=== PATIENT | male | born 1960 | race Caucasian/White ===

== ENCOUNTER 2018-04-11 18:35 | Emergency (ER) | payer BC ==
[2018-04-11] MEDS ORDERED: MORPHINE 4 MG/ML SYR ONE (19:33)
[2018-04-11] MEDS ORDERED: ONDANSETRON 4 MG/2 ML VIAL ONE (19:33)
[2018-04-11] MEDS ORDERED: NA CHLORIDE 0.9% 1,000 ML ONE (19:35)
[2018-04-11 20:00] LABS: Absolute Lymphocytes (CBC) 1.3 K/uL (0.7-4.9); Absolute Monocytes 0.6 K/uL (0.1-1.3); Absolute Neutrophil 10.3 K/uL (1.8-8.0); Basophils % 0.3 % (0-1.3); Hematocrit 49.2 % (39.6-49.0); Lymphocytes % 10.9 % (15.3-44.8); MCH 33.2 pg (27.0-35.0); MCV 96.9 fL (80-100); MPV 7.7 fL (7.6-11.3); Monocytes % 4.6 % (3.3-12.3); RBC Red Blood Cell Count 5.07 M/uL (4.33-5.43)
[2018-04-11 20:17] LABS: ALT/SGPT 31 U/L (12-78); AST/SGOT 18 U/L (15-37); Albumin 4.3 g/dL (3.4-5.0); Alkaline Phosphatase 93 U/L (45-117); Amylase Level 39 U/L (25-115); BUN Blood Urea Nitrogen 9 mg/dL (7-18); Bicarbonate 26 mmol/L (21-32); Bilirubin Direct 0.2 mg/dL (0-0.2); Bilirubin Total 0.7 mg/dL (0.2-1.0); Glucose Level 129 mg/dL (74-106); Lipase 88 U/L (73-393); Potassium 4.2 mmol/L (3.5-5.1); Protein, Total 8.1 g/dL (6.4-8.2); Sodium Level 136 mmol/L (136-145)
--- NOTE | 2018-04-11 21:03 | RAD REPORT ---
EXAM DESCRIPTION: US - Abdomen Exam Limited - 04/11/2018 8:58 pm CLINICAL HISTORY: ABD PAIN COMPARISON: No comparisons FINDINGS: The gallbladder demonstrates no gallstones. No pericholecystic fluid or gallbladder wall t hickening. The common bile duct is normal measuring 3 mm. The liver demonstrates no findings of intrahepatic biliary dilatation. IMPRESSION: Unremarkable examination.
[2018-04-11 21:18] LABS: Urine Blood TRACE (NEG); Urine Glucose NEGATIVE (NEG); Urine Protein 1+ (NEG); Urine Specific Gravity >1.030 (1.005-1.030); Urine pH 6.5 (5.0-7.0)
[2018-04-11 21:20] LABS: Urine Bacteria <20 /HPF (NONE SEEN); Urine Culture Reflex Order NOT NEEDED; Urine Mucus SLIGHT /HPF (NONE SEEN); Urine RBC <5 /HPF (NONE SEEN)
--- NOTE | 2018-04-11 23:15 | ER ---
Nurse's Notes [facility] Name: José Miguel Borrego Age: 57 yrs Sex: Male : 1960 Arrival Date: 04/11/2018 Time: 18:38 Bed 24 Private MD: None, None Diagnosis: Gastritis, unspecified, without bleeding;Vomiting, unspecified Presentation: 04/11 18:47 Presenting complaint: Patient states: chills, nausea vomiting, epigastric pain, ch lightheaded. started two -3 days ago. Transition of care: patient was not received from another setting of care. Onset of symptoms was April 08, 2018. Risk Assessment: Do you want to hurt yourself or someone else? Patient reports no desire to harm self or others. Initial Sepsis Screen: Does the patient meet any 2 criteria? No. Patient's initial sepsis screen is negative. Does the patient have a suspected source of infection? No. Patient's initial sepsis screen is negative. Care prior to arrival: None. 18:47 Method Of Arrival: Ambulatory 18:47 Acuity: RICKY 3 ch Triage Assessment: 18:49 General: Appears in no apparent distress. comfortable. ch Historical: - Allergies: 18:49 No Known Allergies; ch - Home Meds: 18:49 None [Active]; ch - PMHx: 18:49 Hypertension; ch - PSHx: 18:49 Appendectomy; ch - Immunization history:: Adult Immunizations up to date, Last tetanus immunization: not indicated for visit today. Flu vaccine is not up to date. - Social history:: Smoking status: Patient uses tobacco products, smokes one pack cigarettes per day. Patient uses alcohol, on a daily basis. Patient/guardian denies using street drugs. - Ebola Screening: : Patient negative for fever greater than or equal to 101.5 degrees Fahrenheit, and additional compatible Ebola Virus Disease symptoms Patient denies exposure to infectious person Patient denies travel to an Ebola-affected area in the 21 days before illness onset No symptoms or risks identified at this time. Screenin:21 Abuse screen: Denies threats or abuse. Denies injuries from another. Nutritional mg2 screening: No deficits noted. Tuberculosis screening: No symptoms or risk factors identified. Fall Risk IV access (20 points). Assessment: 19:19 General: Appears in no apparent distress. uncomfortable, Behavior is calm, cooperative. mg2 Pain: Complains of pain in abdomen Pain does not radiate. Pain currently is 9 out of 10 on a pain scale. Quality of pain is described as aching, Pain began gradually, Is intermittent. Neuro: Level of Consciousness is awake, alert, obeys commands, Oriented to person, place, time, situation. Cardiovascular: Capillary refill < 3 seconds Patient's skin is warm and dry. Respiratory: Airway is patent Respiratory effort is even, unlabored, Respiratory pattern is regular, symmetrical. GI: Abdomen is flat, Reports lower abdominal pain, upper abdominal pain, nausea, vomiting. : No signs and/or symptoms were reported regarding the genitourinary system. EENT: No signs and/or symptoms were reported regarding the EENT system. Derm: Skin is intact, Skin is pink, warm \T\ dry. normal. Musculoskeletal: Circulation, motion, and sensation intact. 19:50 Reassessment: Patient appears in no apparent distress at this time. Patient and/or mg2 family updated on plan of care and expected duration. Pain level reassessed. Patient is alert, oriented x 3, equal unlabored respirations, skin warm/dry/pink. 20:51 Reassessment: Patient appears in no apparent distress at this time. Patient and/or mg2 family updated on plan of care and expected duration. Pain level reassessed. Patient is alert, oriented x 3, equal unlabored respirations, skin warm/dry/pink. patient sent for ultrasound abdomen. 22:11 Reassessment: Patient appears in no apparent distress at this time. Patient and/or mg2 family updated on plan of care and expected duration. Pain level reassessed. Patient is alert, oriented x 3, equal unlabored respirations, skin warm/dry/pink. 23:00 Reassessment: Patient appears in no apparent distress at this time. Patient and/or mg2 family updated on plan of care and expected duration. Pain level reassessed. Patient is alert, oriented x 3, equal unlabored respirations, skin warm/dry/pink. 23:46 Reassessment: patient doesnt want to wait for the cardiac enzyme result. AMA form mg2 signed by the patient himself. Vital Signs: 18:49 BP 192 / 112; Pulse 70; Resp 16; Temp 98.3; Pulse Ox 99% on R/A; Weight 99.79 kg; ch Height 5 ft. 11 in. (180.34 cm); Pain 10/10; 19:49 BP 184 / 101; Pulse 89; Resp 18; Pulse Ox 96% on R/A; Pain 8/10; mg2 20:36 BP 124 / 72; Pulse 73; Resp 18; Pulse Ox 96% on R/A; Pain 0/10; mg2 22:11 BP 113 / 98; Pulse 77; Resp 18; Pulse Ox 95% on R/A; Pain 0/10; mg2 22:59 Pulse 70; Resp 18; Pulse Ox 100% on R/A; Pain 0/10; mg2 23:49 BP 132 / 78; Pulse 78; Resp 17; Pulse Ox 100% on R/A; Pain 0/10; mg2 18:49 Body Mass Index 30.68 (99.79 kg, 180.34 cm) ED Course: 18:38 Patient arrived in ED. sb2 18:39 None, None is Private Physician. sb2 18:48 Triage completed. ch 18:49 Arm band placed on left wrist. Patient placed in an exam room, on a stretcher. ch 19:11 Maxwell Lindquist, RN is Primary Nurse. mg2 19:19 Shai Cortez MD is Attending Physician. tw4 19:19 No provider procedures requiring assistance completed. Inserted saline lock: 20 gauge mg2 in right antecubital area, using aseptic technique. Blood collected. 19:21 Patient has correct armband on for positive identification. mg2 20:57 US Abdomen Limited In Process Unspecified. EDMS 22:11 EKG done, by ED staff, reviewed by Shai Cortez MD. mg2 23:12 Fredy Rutledge MD is Referral Physician. tw4 23:36 Fredy Rutledge MD is Referral Physician. tw4 23:49 IV discontinued, intact, bleeding controlled, No redness/swelling at site. Pressure mg2 dressing applied. Administered Medications: 19:47 Drug: NS 0.9% 1000 ml Route: IV; Rate: 1 bolus; Site: right antecubital; mg2 20:36 Follow up: Response: No adverse reaction; IV Status: Completed infusion mg2 19:47 Drug: morphine 4 mg Route: IVP; Site: right antecubital; mg2 20:35 Follow up: Response: No adverse reaction; Marked relief of symptoms mg2 19:47 Drug: Zofran 4 mg Route: IVP; Site: right antecubital; mg2 20:35 Follow up: Response: No adverse reaction; Marked relief of symptoms mg2 23:15 Drug: ProTONIX 40 mg Route: IVP; Site: right antecubital; mg2 Outcome: 23:15 Discharge ordered by MD. hollins 23:49 AMA AMA form signed mg2 23:49 Condition: stable 23:49 Discharge instructions given to patient, family, Instructed on discharge instructions, follow up and referral plans. medication usage, Demonstrated understanding of instructions, follow-up care, medications, Prescriptions given X 2. 23:50 Patient left the ED. mg2 Signatures: Dispatcher [employer] EDMS Tracy Mathews, RN RN Shai Cortez MD MD tw4 Angelique Rodríguez 2 Maxwell Lindquist, RN RN mg2
--- NOTE | 2018-04-11 23:15 | EDPHYS ---
Physician Documentation [facility] Name: José Miguel Borrego Age: 57 yrs Sex: Male : 1960 Arrival Date: 04/11/2018 Time: 18:38 Bed 24 Private MD: None, None ED Physician Shai Cortez HPI: 04/11 20:33 This 57 yrs old Male presents to ER via Ambulatory with complaints of Abd tw4 Pain > 50 y/o, Nausea/Vomiting, Dizziness. 20:33 The patient presents to the emergency department with nausea, vomiting. Possible tw4 causes: unknown. The symptoms are aggravated by nothing. The symptoms are alleviated by nothing. Associated signs and symptoms: Pertinent positives: abdominal pain, nausea, vomiting. Severity of symptoms: 3 day(s) ago, At their worst the symptoms were moderate in the emergency department the symptoms are unchanged. The patient has not experienced similar symptoms in the past. The patient has not recently seen a physician. Historical: - Allergies: 18:49 No Known Allergies; ch - Home Meds: 18:49 None [Active]; ch - PMHx: 18:49 Hypertension; ch - PSHx: 18:49 Appendectomy; ch - Immunization history:: Adult Immunizations up to date, Last tetanus immunization: not indicated for visit today. Flu vaccine is not up to date. - Social history:: Smoking status: Patient uses tobacco products, smokes one pack cigarettes per day. Patient uses alcohol, on a daily basis. Patient/guardian denies using street drugs. - Ebola Screening: : Patient negative for fever greater than or equal to 101.5 degrees Fahrenheit, and additional compatible Ebola Virus Disease symptoms Patient denies exposure to infectious person Patient denies travel to an Ebola-affected area in the 21 days before illness onset No symptoms or risks identified at this time. ROS: 20:33 Constitutional: Negative for fever, chills, and weight loss, Cardiovascular: Negative tw4 for chest pain, palpitations, and edema, Respiratory: Negative for shortness of breath, cough, wheezing, and pleuritic chest pain. 20:33 Abdomen/GI: Positive for abdominal pain, nausea and vomiting, nausea, vomiting, and diarrhea, nausea, vomiting, abdominal cramps, Negative for dysphagia, hematemesis, black/tarry stool, rectal pain, rectal bleeding, flatulence. Exam: 20:33 Head/Face: Normocephalic, atraumatic. Chest/axilla: Normal chest wall appearance and tw4 motion. Nontender with no deformity. No lesions are appreciated. Cardiovascular: Regular rate and rhythm with a normal S1 and S2. No gallops, murmurs, or rubs. Normal PMI, no JVD. No pulse deficits. Respiratory: Lungs have equal breath sounds bilaterally, clear to auscultation and percussion. No rales, rhonchi or wheezes noted. No increased work of breathing, no retractions or nasal flaring. 20:33 MS/ Extremity: Pulses equal, no cyanosis. Neurovascular intact. Full, normal range of motion. Neuro: Awake and alert, GCS 15, oriented to person, place, time, and situation. Cranial nerves II-XII grossly intact. Motor strength 5/5 in all extremities. Sensory grossly intact. Cerebellar exam normal. Normal gait. 20:33 Constitutional: The patient appears obviously ill, in obvious pain. 20:33 Abdomen/GI: Inspection: abdomen appears normal, Bowel sounds: normal, Palpation: moderate abdominal tenderness, in the right upper quadrant. Vital Signs: 18:49 BP 192 / 112; Pulse 70; Resp 16; Temp 98.3; Pulse Ox 99% on R/A; Weight 99.79 kg; ch Height 5 ft. 11 in. (180.34 cm); Pain 10/10; 19:49 BP 184 / 101; Pulse 89; Resp 18; Pulse Ox 96% on R/A; Pain 8/10; mg2 20:36 BP 124 / 72; Pulse 73; Resp 18; Pulse Ox 96% on R/A; Pain 0/10; mg2 22:11 BP 113 / 98; Pulse 77; Resp 18; Pulse Ox 95% on R/A; Pain 0/10; mg2 22:59 Pulse 70; Resp 18; Pulse Ox 100% on R/A; Pain 0/10; mg2 23:49 BP 132 / 78; Pulse 78; Resp 17; Pulse Ox 100% on R/A; Pain 0/10; mg2 18:49 Body Mass Index 30.68 (99.79 kg, 180.34 cm) MDM: 19:19 Patient medically screened. tw4 20:33 Differential diagnosis: gastritis, cholecystitis, pancreatitis, appendicitis. Data tw4 reviewed: vital signs, nurses notes. 04/11 19:27 Order name: Amylase, Serum; Complete Time: 20:48 [facility] 04/11 20:49 Interpretation: Within normal limits: ALANNAH 39. [facility] 04/11 19:27 Order name: Basic Metabolic Panel; Complete Time: 20:48 [facility] 04/11 20:48 Interpretation: Normal except: GLUC 129. [facility] 04/11 19:27 Order name: CBC with Diff; Complete Time: 20:48 [facility] 04/11 20:49 Interpretation: Normal except: WBC 12.2; HCT 49.2; ZACK% 84.2; LYM% 10.9; NEUT A 10.3. [facility] 04/11 19:27 Order name: Creatinine for Radiology; Complete Time: 20:48 [facility] 04/11 20:49 Interpretation: Within normal limits: CRE 0.90. [facility] 04/11 19:27 Order name: Hepatic Function; Complete Time: 20:48 [facility] 04/11 20:49 Interpretation: Normal except: GLOB 3.8. [facility] 04/11 19:27 Order name: Lipase; Complete Time: 20:48 [facility] 04/11 20:49 Interpretation: Within normal limits: LIP 88. [facility] 04/11 19:27 Order name: Urine Microscopic Only; Complete Time: 21:47 [facility] 04/11 21:48 Interpretation: Within normal limits. [facility] 04/11 20:31 Order name: US Abdomen Limited; Complete Time: 21:47 [facility] 04/11 20:47 Order name: Urine Dipstick--Ancillary (enter results); Complete Time: 21:47 [place] 04/11 21:47 Interpretation: Normal except: USPGR >1.030; UPROT 1+; UBLD TRACE; UKET 2+. [facility] 04/11 21:48 Order name: Troponin (emerg Dept Use Only) [facility] 04/11 21:48 Order name: Ckmb [facility] 04/11 21:48 Order name: CK [facility] 04/11 19:27 Order name: IV Saline Lock; Complete Time: 19:47 [facility] 04/11 19:27 Order name: Labs collected and sent; Complete Time: 19:48 [facility] 04/11 19:27 Order name: Urine Dipstick-Ancillary (obtain specimen); Complete Time: 22:59 [facility] 04/11 22:13 Order name: EKG - Nurse/Tech; Complete Time: 22:13 mg2 Administered Medications: 19:47 Drug: NS 0.9% 1000 ml Route: IV; Rate: 1 bolus; Site: right antecubital; mg2 20:36 Follow up: Response: No adverse reaction; IV Status: Completed infusion mg2 19:47 Drug: morphine 4 mg Route: IVP; Site: right antecubital; mg2 20:35 Follow up: Response: No adverse reaction; Marked relief of symptoms mg2 19:47 Drug: Zofran 4 mg Route: IVP; Site: right antecubital; mg2 20:35 Follow up: Response: No adverse reaction; Marked relief of symptoms mg2 23:15 Drug: ProTONIX 40 mg Route: IVP; Site: right antecubital; mg2 Disposition: 04/11/18 23:36 Patient has left against medical advice. Impression: Gastritis, unspecified, without bleeding, Vomiting, unspecified. - Patients states they are going to Home. - Condition is Stable. - Discharge Instructions: Gastritis, Adult, Nausea and Vomiting, Adult. - Prescriptions for Protonix 40 mg Oral Tablet - take 1 tablet by ORAL route once daily; 30 tablet. Zofran 4 mg Oral Tablet - take 1 tablet by ORAL route every 12 hours As needed; 6 tablet. Medication Reconciliation Form, Thank You Letter form. Follow up: Private Physician; When: Upon discharge from the Emergency Department; Reason: Further diagnostic work-up, Recheck today's complaints, Continuance of care. Follow up: Fredy Rutledge MD; When: Upon discharge from the Emergency Department; Reason: Recheck today's complaints, Continuance of care. - Problem is new. - Symptoms have improved. Signatures: Dispatcher [employer] EDMS Tracy Mathews, RN RN Shai Cortez MD MD tw4 Maxwell Lindquist RN RN mg2 Corrections: (The following items were deleted from the chart) 23:36 23:15 04/11/2018 23:15 Discharged to Home. Impression: Gastritis, unspecified, without tw4 bleeding; Vomiting, unspecified. Condition is Stable. Forms are Medication Reconciliation Form, Thank You Letter, Antibiotic Education, Prescription Opioid Use. Follow up: Private Physician; When: Upon discharge from the Emergency Department; Reason: Further diagnostic work-up, Recheck today's complaints, Continuance of care. Follow up: Fredy Rutledge; When: Upon discharge from the Emergency Department; Reason: Further diagnostic work-up, Recheck today's complaints, Continuance of care. Problem is new. Symptoms have improved. tw4 23:50 23:36 04/11/2018 23:36 Patients has left against medical advice. Impression: Gastritis, mg2 unspecified, without bleeding; Vomiting, unspecified. Patient states they are going to Home. Condition is Stable. Prescriptions for Protonix 40 mg Oral Tablet - take 1 tablet by ORAL route once daily; 30 tablet, Zofran 4 mg Oral Tablet - take 1 tablet by ORAL route every 12 hours As needed; 6 tabletFollow up: Private Physician; When: Upon discharge from the Emergency Department; Reason: Further diagnostic work-up, Recheck today's complaints, Continuance of care. Follow up: Fredy Rutledge; When: Upon discharge from the Emergency Department; Reason: Recheck today's complaints, Continuance of care. Problem is new. Symptoms have improved. tw4
[2018-04-11] MEDS ORDERED: PANTOPRAZOLE 40 MG INJ ONE (23:17)
[2018-04-12 00:08] LABS: CKMB Creatine Kinase MB < 1.0 ng/mL (0.3-3.6); Creatine Phosphokinase 66 U/L (39-308)
--- NOTE | 2018-04-12 16:18 | EKG ---
Test Date: 2018-04-11 Test Time: 21:57:50 Technology Infusion Specialist: MEASUREMENT RESULTS: Intervals: Rate: 79 MN: 186 QRSD: 86 QT: 376 QTc: 431 [place]: P: 23 MN: 186 QRS: 15 T: 9 INTERPRETIVE STATEMENTS: Normal sinus rhythm Cannot rule out Anterior infarct, age undetermined Abnormal ECG Compared to ECG 02/26/2013 10:39:36 Myocardial infarct finding now present Electronically Signed On 04-12-18 16:14:41 CDT by Alan Stallings
== END 2018-04-11 23:50 | disposition left against medical advice (07) ==
LOC: ER 18:35
DX: K29.70 Gastritis, unspecified, without bleeding (principal); I10 Essential (primary) hypertension; F17.210 Nicotine dependence, cigarettes, uncomplicated
CPT/HCPCS: 36415; 76705; 80048; 80076; 81003; 81015; 82150; 82550; 82553; 83690; 84484; 85025; 93005; 96361; 96374; 96375; 99284; C9113; J2405; J7030

== ENCOUNTER 2018-04-14 05:49 | Observation (INO) | payer BC ==
[2018-04-14] MEDS ORDERED: MORPHINE 4 MG/ML SYR ONE (06:43)
[2018-04-14] MEDS ORDERED: NA CHLORIDE 0.9% 1,000 ML ONE (06:43)
[2018-04-14] MEDS ORDERED: ONDANSETRON 4 MG/2 ML VIAL ONE (06:44)
[2018-04-14 07:21] LABS: Absolute Lymphocytes (CBC) 1.8 K/uL (0.7-4.9); Absolute Monocytes 0.7 K/uL (0.1-1.3); Absolute Neutrophil 9.4 K/uL (1.8-8.0); Basophils % 0.3 % (0-1.3); Eosinophils % 0.5 % (0-4.4); Hematocrit 47.6 % (39.6-49.0); MCH 34.2 pg (27.0-35.0); MCV 94.6 fL (80-100); MPV 7.8 fL (7.6-11.3); Monocytes % 6.1 % (3.3-12.3); RBC Red Blood Cell Count 5.03 M/uL (4.33-5.43)
[2018-04-14 07:33] LABS: ALT/SGPT 48 U/L (12-78); AST/SGOT 23 U/L (15-37); Albumin 4.3 g/dL (3.4-5.0); Alkaline Phosphatase 87 U/L (45-117); Amylase Level 40 U/L (25-115); BUN Blood Urea Nitrogen 14 mg/dL (7-18); Bicarbonate 28 mmol/L (21-32); Bilirubin Direct 0.2 mg/dL (0-0.2); Bilirubin Total 0.8 mg/dL (0.2-1.0); Glucose Level 119 mg/dL (74-106); Lipase 110 U/L (73-393); Potassium 3.5 mmol/L (3.5-5.1); Protein, Total 7.9 g/dL (6.4-8.2); Sodium Level 139 mmol/L (136-145)
[2018-04-14] MEDS ORDERED: HYDRALAZINE HCL 20 MG/ML VIAL ONE ×2 (08:25→09:55)
--- NOTE | 2018-04-14 10:29 | RAD REPORT ---
EXAM DESCRIPTION: CT - Abdomen Pelvis W Contrast - 04/14/2018 10:15 am CLINICAL HISTORY: IV contrast only;Abd pain nausea and vomiting COMPARISON: CT ABD PELVIS W CONTRAST dated 02/26/2013; CT ABD PELVIS W CONTRAST dated 03/14/2008 TECHNIQUE: Computed axial tomography of the abdomen pelvis was obtained. 100 cc Isovue-300 was admin istered intravenously. Oral contrast was not requested which limits evaluation of bowel. All CT scans are performed using dose optimization technique as appropriate and may include automated exposure control or mA/KV adjustment according to patient size. FINDINGS: The liver, spleen, pancreas, adrenal and kidneys appear unremarkable. There is no evidence of diverticulitis. The bladder wall appears thickened. Bilateral hernias contain fat The wall of the distal esophagus appears thickened IMPRESSION: The bladder wall appears thickened. This could be secondary to incomplete distention or cystitis Small bilateral hernias containing fat Apparent thickening of the wall of the distal esophagus may indicate pathology such as inflammation
[2018-04-14] MEDS ORDERED: LISINOPRIL 20 MG TAB ONE (11:05)
--- NOTE | 2018-04-14 11:20 | RAD REPORT ---
EXAM DESCRIPTION: CT - Head Brain Wo Cont - 04/14/2018 11:08 am CLINICAL HISTORY: hypertension;Headache COMPARISON: Sinus Wo Cont dated 05/13/2017 TECHNIQUE: All CT scans are performed using dose optimization technique as appropriate and may inclu de automated exposure control or mA/KV adjustment according to patient size. FINDINGS: Mild contrast is present in intracranial vasculature related to recent CT abdomen study. No intracranial hemorrhage, hydrocephalus or extra-axial fluid collection.No areas of brain edema or evidence of midline shift. The paranasal sinuses and mastoids are clear. The calvarium is intact. IMPRESSION: No acute intracranial abnormality.
--- NOTE | 2018-04-14 11:28 | ER ---
Nurse's Notes [facility] Name: José Miguel Borrego Age: 57 yrs Sex: Male : 1960 Arrival Date: 04/14/2018 Time: 05:52 Bed 5 Private MD: Diagnosis: Essential (primary) hypertension;Upper abdominal pain, unspecified Presentation: 04/14 06:15 Presenting complaint: Patient states: that he is having abd pain, nausea and vomiting. fc Also having issues with high blood pressure. Was seen here on for same issues, treated then sent home. Transition of care: patient was not received from another setting of care. Onset of symptoms was April 08, 2018. Risk Assessment: Do you want to hurt yourself or someone else? Patient reports no desire to harm self or others. Initial Sepsis Screen: Does the patient meet any 2 criteria? No. Patient's initial sepsis screen is negative. Does the patient have a suspected source of infection? No. Patient's initial sepsis screen is negative. Care prior to arrival: None. 06:15 Method Of Arrival: Ambulatory 06:15 Acuity: RICKY 3 fc Historical: - Allergies: 06:29 No Known Allergies; fc - Home Meds: 06:29 None [Active]; fc - PMHx: 06:29 Hypertension; fc - PSHx: 06:29 Appendectomy; fc - Immunization history:: Last tetanus immunization: up to date. - Social history:: Smoking status: Patient uses tobacco products, smokes two packs cigarettes per day. Patient uses alcohol, on a daily basis. - Ebola Screening: : Patient negative for fever greater than or equal to 101.5 degrees Fahrenheit, and additional compatible Ebola Virus Disease symptoms Patient denies exposure to infectious person Patient denies travel to an Ebola-affected area in the 21 days before illness onset. Screenin:15 Abuse screen: Denies threats or abuse. Nutritional screening: No deficits noted. fc Tuberculosis screening: No symptoms or risk factors identified. Fall Risk None identified. Assessment: 06:25 General: Appears in no apparent distress. uncomfortable, Behavior is calm, cooperative, jb4 appropriate for age. Pain: Complains of pain in abdomen, Headache Pain does not radiate. Pain currently is 8 out of 10 on a pain scale. at worst was 10 out of 10 on a pain scale. Quality of pain is described as throbbing, Pain began 2-3 days ago. Is continuous. Neuro: Level of Consciousness is awake, alert, obeys commands, Oriented to person, place, time, situation. Cardiovascular: Heart tones S1 S2 present Patient's skin is warm and dry. Respiratory: Airway is patent Respiratory effort is even, unlabored, Respiratory pattern is regular, symmetrical, Breath sounds are clear bilaterally. GI: Abdomen is round Bowel sounds present X 4 quads. Abdomen is tender to palpation X 4 quads. Reports vomiting. : No signs and/or symptoms were reported regarding the genitourinary system. EENT: No signs and/or symptoms were reported regarding the EENT system. Derm: Skin is intact, Skin is pink, warm \T\ dry. Musculoskeletal: Circulation, motion, and sensation intact. 07:15 Reassessment: Patient appears in no apparent distress at this time. Patient and/or hb family updated on plan of care and expected duration. Pain level reassessed. Patient is alert, oriented x 3, equal unlabored respirations, skin warm/dry/pink. patient verbalized his abdominal pain decreased to 5/10. Patient states feeling better. Patient states symptoms have improved. 08:29 Reassessment: BP 216/109, HR 70s, pt c/o headache. [employer] Kenisha notified. Hydralazine hb administered as ordered. Family at bedside. 09:29 Reassessment: Patient appears in no apparent distress at this time. Patient and/or hb family updated on plan of care and expected duration. Pain level reassessed. Patient is alert, oriented x 3, equal unlabored respirations, skin warm/dry/pink. 09:45 Reassessment: Blood pressure of 208/100 mmHg, heart rate of 61 bpm; and patient cc3 complaints of headache and abdominal pain with a score of 9/10; informed [employer] Kenisha and she's aware and she spoke with the patient and his family and ordered for Hydralazine and carried out. 10:20 Reassessment: Patient appears in no apparent distress at this time. Patient and/or cc3 family updated on plan of care and expected duration. Pain level reassessed. Patient is alert, oriented x 3, equal unlabored respirations, skin warm/dry/pink. Patient came back from CT scan department and CT scan of abdomen done. Patient states symptoms have improved. 11:14 Reassessment: Patient appears in no apparent distress at this time. Patient and/or hb family updated on plan of care and expected duration. Pain level reassessed. Patient is alert, oriented x 3, equal unlabored respirations, skin warm/dry/pink. 11:28 Reassessment: patient for admission ordered by Dr. Nichols as a case of essential cc3 hypertension for observation. 12:15 Reassessment: Patient appears in no apparent distress at this time. No changes from sv previously documented assessment. Patient and/or family updated on plan of care and expected duration. Pain level reassessed. Patient is alert, oriented x 3, equal unlabored respirations, skin warm/dry/pink. 13:00 Reassessment: Patient appears in no apparent distress at this time. No changes from sv previously documented assessment. Patient and/or family updated on plan of care and expected duration. Pain level reassessed. Patient is alert, oriented x 3, equal unlabored respirations, skin warm/dry/pink. Awaiting room assignment at this time. 14:00 Reassessment: Patient appears in no apparent distress at this time. Patient and/or hb family updated on plan of care and expected duration. Pain level reassessed. Patient is alert, oriented x 3, equal unlabored respirations, skin warm/dry/pink. Room assigned at 232, called medical-surgical block at extension [id number] and the one who answered named Marla said the nurse who will receive the patient will just call me back instead. 14:30 Reassessment: Report given to medical-poultry farmer Berenice Stern for continuity of cc3 care. Vital Signs: 06:15 BP 209 / 103; Pulse 75; Resp 20; Temp 97.6(O); Pulse Ox 97% on R/A; Weight 99.79 kg fc (R); Height 5 ft. 11 in. (180.34 cm) (R); Pain 9/10; 07:25 BP 184 / 88; Pulse 61; Resp 18; Pulse Ox 91% on R/A; sv 07:26 Pulse Ox 96% on 2 lpm NC; sv 08:15 BP 216 / 109; Pulse 70; Resp 18; Pulse Ox 97% on 2 lpm NC; Pain 4/10; hb 08:34 BP 134 / 90; Pulse 89; Resp 14; Pulse Ox 96% on 2 lpm NC; Pain 0/10; hb 08:56 BP 125 / 94; Pulse 63; Resp 18; Pulse Ox 97% 2 lpm ; hb 09:15 BP 126 / 83; Pulse 61; Resp 14 S; Pulse Ox 98% on 2 lpm NC; Pain 0/10; cc3 09:30 BP 180 / 103; Pulse 61; Resp 15; Pulse Ox 97% on 2 lpm NC; Pain 9/10; cc3 09:45 BP 208 / 100; Pulse 68; Resp 16; Pulse Ox 98% on 2 lpm NC; cc3 10:00 BP 199 / 103; Pulse 69; Resp 17; Pulse Ox 97% on 2 lpm NC; cc3 10:30 BP 133 / 83; Pulse 80; Resp 15; Pulse Ox 98% on 2 lpm NC; cc3 10:42 BP 146 / 86; Pulse 65; Resp 15; Pulse Ox 98% on 2 lpm NC; hb 10:45 BP 130 / 79; Pulse 71; Resp 16; Pulse Ox 99% on 2 lpm NC; Pain 0/10; cc3 11:13 BP 144 / 88; Pulse 75; Resp 16; Pulse Ox 98% on 2 lpm NC; hb 12:04 BP 142 / 85; Pulse 67; Resp 17; Pulse Ox 97% on 2 lpm NC; aj 12:26 BP 135 / 85; Pulse 65; Resp 15; Pulse Ox 97% ; sv 13:00 BP 128 / 88; Pulse 79; Resp 19; Pulse Ox 97% on 2 lpm NC; sv 13:37 BP 130 / 81; Pulse 65; Resp 15; Pulse Ox 97% ; sv 14:00 BP 112 / 77; Pulse 65; Resp 16; Pulse Ox 95% ; hb 14:30 BP 109 / 69; Pulse 65; Resp 16; Pulse Ox 96% on R/A; hb 06:15 Body Mass Index 30.68 (99.79 kg, 180.34 cm) fc ED Course: 05:52 Patient arrived in ED. es 06:15 Arm band placed on Patient placed in an exam room, on a stretcher. fc 06:15 Patient has correct armband on for positive identification. Placed in gown. Bed in low fc position. Call light in reach. Pulse ox on. NIBP on. 06:15 No provider procedures requiring assistance completed. fc 06:21 Kenisha Chaparro FNP-C is PHCP. kb 06:21 Fredy Jerry MD is Attending Physician. kb 06:25 Triage completed. fc 06:30 Inserted saline lock: 22 gauge in right antecubital area, using aseptic technique. jb4 Blood collected. 06:30 Initial lab(s) drawn, by me, sent to lab. jb4 06:34 Bin Burger, RN is Primary Nurse. jb4 06:50 EKG done, by ED staff, reviewed by Fredy Jerry MD. aa1 06:56 lunchroom monitor on. jb4 09:45 Ice pack provided per patient request. mb4 10:15 CT Abd/Pelvis - W/Contrast In Process Unspecified. EDMS 11:09 CT Head Brain wo Cont In Process Unspecified. EDMS 11:27 Simone Moya MD is Hospitalizing Provider. kb 14:30 Patient admitted, IV remains in place. cc3 Administered Medications: 06:38 Drug: Zofran 4 mg Route: IVP; Site: right antecubital; jb4 07:20 Follow up: Response: No adverse reaction hb 06:40 Drug: morphine 4 mg Route: IVP; Site: right antecubital; jb4 07:20 Follow up: Response: No adverse reaction hb 06:44 Drug: NS 0.9% 1000 ml Route: IV; Rate: 1000 ml; Site: right antecubital; jb4 07:45 Follow up: Response: No adverse reaction; IV Status: Completed infusion hb 08:26 Drug: hydrALAZINE 5 mg Route: IV; Rate: calculated rate; Site: right antecubital; hb 09:00 Follow up: Response: No adverse reaction; Blood pressure is lowered hb 09:50 Drug: hydrALAZINE 5 mg Route: IV; Rate: calculated rate; Site: right antecubital; cc3 10:30 Follow up: Response: No adverse reaction hb 10:55 Drug: Lisinopril 20 mg Route: PO; cc3 11:20 Follow up: Response: No adverse reaction cc3 Outcome: 11:28 Decision to Hospitalize by Provider. kb 14:30 Admitted to Med/surg accompanied by tech, via wheelchair, room 232, Other SBAR and cc3 photocopy of ECG. Report called to JOE Stern 14:30 Condition: stable 14:30 Instructed on the need for admit. 14:44 Patient left the ED. sv Signatures: Dispatcher [employer] EDMS Kenisha Chaparro, TOOLROOM CLERK-C TOOLROOM CLERK-CkDee Jaeger RN Cindy Medina RN RN Christie Cosme RN Zohra Doss Felicia, RN RN Em Kwok RN RN hb Bryson, James, RN RN 4 Yesenia Kwok 4 Zoë Mckinley 3 Corrections: (The following items were deleted from the chart) 05:15 Presenting complaint: Patient states: that he is having abd pain, nausea and fc vomiting. Also having issues with high blood pressure. Was seen here on for same issues, treated then sent home. 05:15 Transition of care: patient was not received from another setting of care. [facility] 05:15 Onset of symptoms was April 08, 2018 [facility] 05:15 Risk Assessment: Do you want to hurt yourself or someone else? Patient reports no desire to harm self or others. 05:15 Initial Sepsis Screen: Does the patient meet any 2 criteria? No. Patient's initial sepsis screen is negative. Does the patient have a suspected source of infection? No. Patient's initial sepsis screen is negative. 05:15 Care prior to arrival: None. [facility] 05:15 Method Of Arrival: Ambulatory [facility] 05:15 Acuity: RICKY 3 [facility] 05:15 Immunization history: Last tetanus immunization: up to date [facility] 05:15 Social history: Smoking status: Patient uses tobacco products, smokes two packs cigarettes per day. 05:15 Ebola Screening: Patient negative for fever greater than or equal to 101.5 degrees Fahrenheit, and additional compatible Ebola Virus Disease symptoms Patient denies exposure to infectious person Patient denies travel to an Ebola-affected area in the 21 days before illness onset 05:15 BP 209 / 103; Pulse 75bpm; Resp 20bpm; Pulse Ox 97% RA; Temp 97.6F Oral; 99.79 kg fc Reported; Height 5 ft. 11 in. Reported; BMI: 30.6; Pain 9/10; fc 06:57 06:25 Pain: Complains of pain in abdomen jb4 jb4 08:35 08:15 BP 216 / 109; Pulse 70bpm; Resp 18bpm; Pulse Ox 97% 2 lpm Nasal Cannula; hb hb 11:10 10:45 BP 130 / 79; Pulse 71bpm; Resp 16bpm; Pulse Ox 99% 2 lpm Nasal Cannula; cc3 cc3 11:11 10:20 Reassessment: Patient came back from CT scan department and CT scan of abdomen cc3 done. cc3
--- NOTE | 2018-04-14 11:28 | EDPHYS ---
Physician Documentation [facility] Name: José Miguel Borrego Age: 57 yrs Sex: Male : 1960 Arrival Date: 04/14/2018 Time: 05:52 Bed 5 Private MD: ED Physician Fredy Jerry HPI: 04/14 06:26 This 57 yrs old Male presents to ER via Ambulatory with complaints of High kb Blood Pressure, Abdominal Pain. 06:26 The patient presents with abdominal pain in the upper abdomen. Onset: The kb symptoms/episode began/occurred 5 day(s) ago. The symptoms do not radiate. Associated signs and symptoms: Pertinent positives: nausea and vomiting, Pertinent negatives: anorexia, blood in stools, chest pain, constipation, diarrhea, dysuria, fever, headache, hematuria, palpitations, shortness of breath, testicular pain, vomiting blood. The symptoms are described as intermittent. Modifying factors: The symptoms are alleviated by nothing, the symptoms are aggravated by nothing. Severity of pain: At its worst the pain was moderate severe in the emergency department the pain is unchanged. The patient has not experienced similar symptoms in the past. The patient has been recently seen at the [facility] Emergency Department, this week, for similar complaints labs were performed, an ultrasound was performed. Historical: - Allergies: 06:29 No Known Allergies; fc - Home Meds: :29 None [Active]; fc - PMHx: 06:29 Hypertension; fc - PSHx: 06:29 Appendectomy; fc - Immunization history:: Last tetanus immunization: up to date. - Social history:: Smoking status: Patient uses tobacco products, smokes two packs cigarettes per day. Patient uses alcohol, on a daily basis. - Ebola Screening: : Patient negative for fever greater than or equal to 101.5 degrees Fahrenheit, and additional compatible Ebola Virus Disease symptoms Patient denies exposure to infectious person Patient denies travel to an Ebola-affected area in the 21 days before illness onset. ROS: 06:26 Constitutional: Negative for fever, chills, and weight loss, Cardiovascular: Negative kb for chest pain, palpitations, and edema, Respiratory: Negative for shortness of breath, cough, wheezing, and pleuritic chest pain, Back: Negative for injury and pain, : Negative for injury, bleeding, discharge, and swelling, MS/Extremity: Negative for injury and deformity, Skin: Negative for injury, rash, and discoloration. 06:26 Abdomen/GI: Positive for abdominal pain, nausea and vomiting, Negative for diarrhea, constipation, abdominal cramps, abdominal distension, anorexia. 06:26 Neuro: Positive for headache. Exam: 06:25 Constitutional: This is a well developed, well nourished patient who is awake, alert, kb and in no acute distress. Head/Face: Normocephalic, atraumatic. Eyes: Pupils equal round and reactive to light, extra-ocular motions intact. Lids and lashes normal. Conjunctiva and sclera are non-icteric and not injected. Cornea within normal limits. Periorbital areas with no swelling, redness, or edema. ENT: Nares patent. No nasal discharge, no septal abnormalities noted. Tympanic membranes are normal and external auditory canals are clear. Oropharynx with no redness, swelling, or masses, exudates, or evidence of obstruction, uvula midline. Mucous membranes moist. Neck: Trachea midline, no thyromegaly or masses palpated, and no cervical lymphadenopathy. Supple, full range of motion without nuchal rigidity, or vertebral point tenderness. No Meningismus. Chest/axilla: Normal chest wall appearance and motion. Nontender with no deformity. No lesions are appreciated. Cardiovascular: Regular rate and rhythm with a normal S1 and S2. No gallops, murmurs, or rubs. Normal PMI, no JVD. No pulse deficits. Respiratory: Lungs have equal breath sounds bilaterally, clear to auscultation and percussion. No rales, rhonchi or wheezes noted. No increased work of breathing, no retractions or nasal flaring. Back: No spinal tenderness. No costovertebral tenderness. Full range of motion. Skin: Warm, dry with normal turgor. Normal color with no rashes, no lesions, and no evidence of cellulitis. MS/ Extremity: Pulses equal, no cyanosis. Neurovascular intact. Full, normal range of motion. Neuro: Awake and alert, GCS 15, oriented to person, place, time, and situation. Cranial nerves II-XII grossly intact. Motor strength 5/5 in all extremities. Sensory grossly intact. Cerebellar exam normal. Normal gait. 06:25 Abdomen/GI: Inspection: abdomen appears normal, Bowel sounds: normal, in all quadrants, Palpation: soft, in all quadrants, moderate abdominal tenderness, in the right upper quadrant. Vital Signs: 06:15 BP 209 / 103; Pulse 75; Resp 20; Temp 97.6(O); Pulse Ox 97% on R/A; Weight 99.79 kg fc (R); Height 5 ft. 11 in. (180.34 cm) (R); Pain 9/10; 07:25 BP 184 / 88; Pulse 61; Resp 18; Pulse Ox 91% on R/A; sv 07:26 Pulse Ox 96% on 2 lpm NC; sv 08:15 BP 216 / 109; Pulse 70; Resp 18; Pulse Ox 97% on 2 lpm NC; Pain 4/10; hb 08:34 BP 134 / 90; Pulse 89; Resp 14; Pulse Ox 96% on 2 lpm NC; Pain 0/10; hb 08:56 BP 125 / 94; Pulse 63; Resp 18; Pulse Ox 97% 2 lpm ; hb 09:15 BP 126 / 83; Pulse 61; Resp 14 S; Pulse Ox 98% on 2 lpm NC; Pain 0/10; cc3 09:30 BP 180 / 103; Pulse 61; Resp 15; Pulse Ox 97% on 2 lpm NC; Pain 9/10; cc3 09:45 BP 208 / 100; Pulse 68; Resp 16; Pulse Ox 98% on 2 lpm NC; cc3 10:00 BP 199 / 103; Pulse 69; Resp 17; Pulse Ox 97% on 2 lpm NC; cc3 10:30 BP 133 / 83; Pulse 80; Resp 15; Pulse Ox 98% on 2 lpm NC; cc3 10:42 BP 146 / 86; Pulse 65; Resp 15; Pulse Ox 98% on 2 lpm NC; hb 10:45 BP 130 / 79; Pulse 71; Resp 16; Pulse Ox 99% on 2 lpm NC; Pain 0/10; cc3 11:13 BP 144 / 88; Pulse 75; Resp 16; Pulse Ox 98% on 2 lpm NC; hb 12:04 BP 142 / 85; Pulse 67; Resp 17; Pulse Ox 97% on 2 lpm NC; aj 12:26 BP 135 / 85; Pulse 65; Resp 15; Pulse Ox 97% ; sv 13:00 BP 128 / 88; Pulse 79; Resp 19; Pulse Ox 97% on 2 lpm NC; sv 13:37 BP 130 / 81; Pulse 65; Resp 15; Pulse Ox 97% ; sv 14:00 BP 112 / 77; Pulse 65; Resp 16; Pulse Ox 95% ; hb 14:30 BP 109 / 69; Pulse 65; Resp 16; Pulse Ox 96% on R/A; hb 06:15 Body Mass Index 30.68 (99.79 kg, 180.34 cm) fc MDM: 06:21 Patient medically screened. kb 06:25 Data reviewed: vital signs, nurses notes. Data interpreted: Pulse oximetry: on room air kb is 98 %. Interpretation: normal. 10:52 Counseling: I had a detailed discussion with the patient and/or guardian regarding: the kb historical points, exam findings, and any diagnostic results supporting the discharge/admit diagnosis, lab results, radiology results, the need for further work-up and treatment in the hospital. 11:26 Physician consultation: Simone Moya MD was called at 11:26, message left. kb 12:02 Physician consultation: Simone Moya MD was contacted at 12:02, regarding admission, to the telemetry unit. patient's condition, and will see patient in ED, shortly. 04/14 06:22 Order name: Amylase, Serum kb 04/14 06:22 Order name: Basic Metabolic Panel kb 04/14 06:22 Order name: CBC with Diff; Complete Time: 07:33 kb 04/14 06:22 Order name: Hepatic Function; Complete Time: 07:33 kb 04/14 06:22 Order name: Lipase; Complete Time: 07:33 kb 04/14 06:22 Order name: Troponin (emerg Dept Use Only); Complete Time: 07:33 kb 04/14 06:23 Order name: Amylase Level; Complete Time: 07:33 EDMS 04/14 06:23 Order name: Basic Metabolic Panel; Complete Time: 07:33 EDMS 04/14 09:46 Order name: CT Abd/Pelvis - W/Contrast; Complete Time: 10:29 kb 04/14 10:34 Order name: Urine Dipstick--Ancillary (enter results); Complete Time: 12:23 eb 04/14 10:57 Order name: CT Head Brain wo Cont; Complete Time: 11:24 kb 04/14 06:22 Order name: IV Saline Lock; Complete Time: 06:36 kb 04/14 06:22 Order name: Labs collected and sent; Complete Time: 06:36 kb 04/14 06:22 Order name: Urine Dipstick-Ancillary (obtain specimen); Complete Time: 10:40 kb 04/14 06:22 Order name: EKG; Complete Time: 06:23 kb 04/14 06:22 Order name: EKG - Nurse/Tech; Complete Time: 06:50 kb Administered Medications: 06:38 Drug: Zofran 4 mg Route: IVP; Site: right antecubital; jb4 07:20 Follow up: Response: No adverse reaction hb 06:40 Drug: morphine 4 mg Route: IVP; Site: right antecubital; jb4 07:20 Follow up: Response: No adverse reaction hb 06:44 Drug: NS 0.9% 1000 ml Route: IV; Rate: 1000 ml; Site: right antecubital; jb4 07:45 Follow up: Response: No adverse reaction; IV Status: Completed infusion hb 08:26 Drug: hydrALAZINE 5 mg Route: IV; Rate: calculated rate; Site: right antecubital; hb 09:00 Follow up: Response: No adverse reaction; Blood pressure is lowered hb 09:50 Drug: hydrALAZINE 5 mg Route: IV; Rate: calculated rate; Site: right antecubital; cc3 10:30 Follow up: Response: No adverse reaction hb 10:55 Drug: Lisinopril 20 mg Route: PO; cc3 11:20 Follow up: Response: No adverse reaction cc3 Disposition: 19:27 Co-signature as Attending Physician, Fredy Jerry MD I agree with the assessment and va plan of care. Disposition: 04/14/18 11:28 Hospitalization ordered by Simone Moya for Observation. Preliminary diagnosis are Essential (primary) hypertension, Upper abdominal pain, unspecified. - Bed requested for Telemetry/MedSurg (observation). - Status is Observation. sv - Condition is Stable. - Problem is new. - Symptoms are unchanged. UTI on Admission? No Signatures: Dispatcher [employer] EDKenisha Licea, Dee Hyatt RN RN sv Chretien, Felicia, RN RN fc Baxter, Heather, RN RN Bin Burger RN RN jb4 Rosalino, Fredy, Mali Fletcher MD, Charlene cc3 Corrections: (The following items were deleted from the chart) 06: 05:15 Immunization history: Last tetanus immunization: up to date [facility] 05:15 Social history: Smoking status: Patient uses tobacco products, smokes two packs fc cigarettes per day. 05:15 Ebola Screening: Patient negative for fever greater than or equal to 101.5 fc degrees Fahrenheit, and additional compatible Ebola Virus Disease symptoms Patient denies exposure to infectious person Patient denies travel to an Ebola-affected area in the 21 days before illness onset fc 11: 10:52 Physician consultation: kb kb 14:07 11:28 Hospitalization Ordered by Simone Moya MD for Observation. Preliminary diagnosis eb is Essential (primary) hypertension; Upper abdominal pain, unspecified. Bed requested for Telemetry/MedSurg (observation). Status is Observation. Condition is Stable. Problem is new. Symptoms are unchanged. UTI on Admission? No. kb 14:44 14:07 04/14/2018 11:28 Hospitalization Ordered by Simone Moya MD for Observation. sv Preliminary diagnosis is Essential (primary) hypertension; Upper abdominal pain, unspecified. Bed requested for Telemetry/MedSurg (observation). Status is Observation. Condition is Stable. Problem is new. Symptoms are unchanged. UTI on Admission? No. eb
[2018-04-14 12:17] LABS: Urine Blood NEGATIVE (NEG); Urine Glucose NEGATIVE (NEG); Urine Protein NEGATIVE (NEG)
[2018-04-14] MEDS ORDERED: ACETAMINOPHEN 500 MG TAB PO PRN (13:07)
[2018-04-14] MEDS ORDERED: ONDANSETRON 4 MG/2 ML VIAL IV PRN (13:07)
[2018-04-14] MEDS ORDERED: HYDRALAZINE HCL 20 MG/ML VIAL IV PRN (13:07)
[2018-04-14] MEDS ORDERED: POTASSIUM 25 MEQ EFFERV TAB PO ONE (16:09)
[2018-04-14] MEDS: NA CHLORIDE 0.9% 1,000 ML IV SCH (16:43)
[2018-04-14] MEDS: FOLIC ACID 1 MG TABLET PO SCH (17:38)
[2018-04-14] MEDS: THIAMINE HCL 100 MG TABLET PO SCH (17:38)
[2018-04-15] MEDS: NA CHLORIDE 0.9% 1,000 ML IV SCH (01:02)
--- NOTE | 2018-04-15 03:20 | HP ---
Date of Admission: 04/14/2018 Chief Complaint: Intractable nausea, vomiting, elevated blood pressure, headache. Code Status: Full. History Of Present Illness: The patient is a 57-year-old male with no significant past medical histo ry. He does report some elevated blood pressure, but never been diagnosed and does not take any medi cations. Came in on Tuesday for abdominal pain, nausea, vomiting. Was found to have elevated blood pressure and given medications and was discharged from the ER. The patient came back in today for wo rsening symptoms. The patient states that he has had intractable nausea, vomiting, unable to really tolerate any p.o. intake. His blood pressure has been running high into the 150s. Denies any fever, chills, diarrhea, loose stools or any blood in the stool. No unusual foods or travel outside the [facility]. The patient's workup revealed a white count of 12,[address] scan of the abdome n and pelvis was unremarkable, did show some thickening of the wall of the distal esophagus. CT scan of the head was done due to elevated blood pressure and headache. Did not show any acute intracrani al abnormalities. The patient was then given hydralazine x2 and lisinopril and blood pressure improv ed from 200s to 190s. The patient was then referred for admission. When the patient was seen in the ER, he was awake, alert, oriented x3, in some mild distress. Past Medical History: Hypertension. Past Surgical History: Appendectomy. Allergies: NO KNOWN DRUG ALLERGIES. Medications: None. Social History: The patient smokes a pack to 2 packs per day for several years. Drinks alcohol on a daily basis, usually drinks 3 to 4 beers daily. His last drink was on Tuesday. Denies any illicit drug use. The patient is employed. Family History: High blood pressure runs in the family. Review of Systems: Negative except as above. Physical Examination: Vital Signs: Temperature 97.6, heart rate 75, blood pressure 209/102, respirations 20, O2 97% on mayra m air. General: Awake, alert, oriented x3. Some mild distress. Appears older than stated age. Obese male . BMI 30. HEENT: Normocephalic, atraumatic. PERRLA. EOMI. Dry mucous membranes. Oropharynx is clear. Poor dentition. Conjunctivae are anicteric. Neck: Supple. No JVD. Trachea midline. CV: S1, S2. No murmurs. Regular rate and rhythm. Peripheral pulses present. Respiratory: Moving air well bilaterally. No wheezing or stridor. No use of accessory muscles. Gastrointestinal: Abdomen is soft, nontender, nondistended. Positive bowel sounds. No guarding or rigidity. Extremities: No clubbing or cyanosis. Trace pedal edema. Neuro: Cranial nerves 2 through 12 intact grossly. No focal neurological deficit. Speech is normal . Strength is 5/5 bilateral upper and lower extremities. Sensation intact to light touch skin. Skin: No rashes. Normal skin turgor. Psych: Mood is okay. Affect is full. Insight and judgment are good. Laboratory Data: WBC 12, H and H 17.2 and 47.6, platelets 304, neutrophils 78%. Sodium 139, potassi um 3.5, chloride 103, CO2 28, BUN 14, creatinine 0.8, glucose 119, calcium 9.2. Troponin less than [address] scan of the head shows no acute intracranial abnormality. CT scan of the abdo men shows bladder wall appears thickened, could be secondary to incomplete distention or cystitis. S mall bilateral hernias containing fat. Apparent thickening of the wall of the distal esophagus may i ndicate pathology such as inflammation. Assessment And Plan: A 57-year-old male with: 1.Intractable nausea and vomiting. We will start on clear liquid diet, and continue antiemetics and IV fluid resuscitation. 2.Acute dehydration. 3.Obesity. BMI 30.7. 4.Nicotine dependence with cigarette smoking. Counseled. 5.Alcohol dependence. We will start on multivitamin and folate. Use Ativan p.r.n. for withdrawal. 6.Uncontrolled blood pressure, hypertensive urgency. Blood pressure in the 200s. Currently much im proved after hydralazine and lisinopril. We will titrate dose. Keep p.r.n medications. 7.Gastrointestinal and deep venous thrombosis prophylaxis addressed. Plan: Admit the patient to Med-Surg, place as observation. Discharge in the next 24 hours once cont inues to improve. May require some blood pressure medications to go home with. The patient has sche duled appointment with PCP in [place] next week. /NATTY Voice ID: [id number]
[2018-04-15 05:39] LABS: Absolute Lymphocytes (CBC) 2.7 K/uL (0.7-4.9); Absolute Monocytes 1.2 K/uL (0.1-1.3); Absolute Neutrophil 6.8 K/uL (1.8-8.0); Basophils % 0.5 % (0-1.3); Eosinophils % 1.5 % (0-4.4); Hematocrit 44.2 % (39.6-49.0); Lymphocytes % 24.7 % (15.3-44.8); MCH 34.1 pg (27.0-35.0); MCV 95.4 fL (80-100); MPV 7.7 fL (7.6-11.3); Monocytes % 11.3 % (3.3-12.3); RBC Red Blood Cell Count 4.63 M/uL (4.33-5.43)
[2018-04-15 05:51] LABS: ALT/SGPT 50 U/L (12-78); AST/SGOT 30 U/L (15-37); Albumin 3.8 g/dL (3.4-5.0); Alkaline Phosphatase 83 U/L (45-117); BUN Blood Urea Nitrogen 10 mg/dL (7-18); Bicarbonate 30 mmol/L (21-32); Glucose Level 93 mg/dL (74-106); Potassium 3.7 mmol/L (3.5-5.1); Protein, Total 7.1 g/dL (6.4-8.2); Sodium Level 139 mmol/L (136-145)
--- NOTE | 2018-04-15 06:09 | EKG ---
Test Date: 2018-04-14 Test Time: 06:40:09 Apartment Maintenance Manager: CHATO MEASUREMENT RESULTS: Intervals: Rate: 60 TN: 174 QRSD: 82 QT: 390 QTc: 390 [place]: P: 23 TN: 174 QRS: 10 T: 15 INTERPRETIVE STATEMENTS: Normal sinus rhythm Normal ECG Compared to ECG 04/11/2018 21:57:50 Myocardial infarct finding no longer present Electronically Signed On 04-15-18 06:06:31 CDT by Alan Stallings
[2018-04-15] MEDS ORDERED: POTASSIUM 25 MEQ EFFERV TAB PO ONE (06:24)
[2018-04-15] MEDS: THIAMINE HCL 100 MG TABLET PO SCH (08:18)
[2018-04-15] MEDS: FOLIC ACID 1 MG TABLET PO SCH (08:19)
[2018-04-15] MEDS ORDERED: LISINOPRIL 10 MG TAB PO SCH (09:00)
--- NOTE | 2018-04-15 11:02 | P.DS ---
Admission Date: 04/14/18 Discharge Date: 04/15/18 Disposition: ROUTINE DISCHARGE Discharge Condition: GOOD Reason for Admission: HTN Brief History of Present Illness: Pt is 57 yrs ols AW nausea and vomiting due to HTn . Hospital Course: pt Tx for HTN. AT D/C doign well. No complaints. Chest clear. BP controlled. CVS HS normal .LAbs normal. Ct abnormal. Thickend esophagus and Bladder. To f/u wiht primary care/ Vital Signs/Physical Exam: Temp Pulse Resp BP Pulse Ox 97.9 F 65 18 157/87 H 96 04/15/18 04:00 04/15/18 08:19 04/15/18 04:00 04/15/18 08:19 04/15/18 04:00 Laboratory Data at Discharge: WBC 10.9 K/uL (4.3-10.9) 04/15/18 04:43 Hgb 15.8 g/dL (13.6-17.9) 04/15/18 04:43 Hct 44.2 % (39.6-49.0) 04/15/18 04:43 Plt Count 266 K/uL (152-406) 04/15/18 04:43 Sodium 139 mmol/L (136-145) 04/15/18 04:43 Potassium 3.7 mmol/L (3.5-5.1) 04/15/18 04:43 BUN 10 mg/dL (7-18) 04/15/18 04:43 Creatinine 0.80 mg/dL (0.55-1.3) 04/15/18 04:43 Glucose 93 mg/dL (74-106) 04/15/18 04:43 Total Bilirubin 1.0 mg/dL (0.2-1.0) 04/15/18 04:43 AST 30 U/L (15-37) 04/15/18 04:43 ALT 50 U/L (12-78) 04/15/18 04:43 Alkaline Phosphatase 83 U/L (45-117) 04/15/18 04:43 Amylase 40 U/L (25-115) 04/14/18 06:38 Lipase 110 U/L (73-393) 04/14/18 06:38 Home Medications: Lisinopril [Prinivil*] 10 mg PO DAILY #30 tab 04/15/18 New Medications: Lisinopril [Prinivil*] 10 mg PO DAILY #30 tab Patient Discharge Instructions: pt to f/u [facility] primary care 1-2 wks Diet: Regular Activity: Ad sun
== END 2018-04-15 10:46 | disposition home or self-care (01) ==
LOC: ER 05:49 → ERHOLD 12:22 → 2ND 14:32
PROVIDERS: ADMIT Family Medicine; ATTEND Family Medicine
DX: I16.0 Hypertensive urgency (principal); R11.2 Nausea with vomiting, unspecified; E86.0 Dehydration; E66.9 Obesity, unspecified; Z68.30 Body mass index [BMI] 30.0-30.9, adult; F10.20 Alcohol dependence, uncomplicated; F17.210 Nicotine dependence, cigarettes, uncomplicated
CPT/HCPCS: 36415; 70450; 74177; 80048; 80053; 80076; 81003; 82150; 83690; 84484; 85025; 93005; 94760; 96361; 96374; 96375; 99285; G0378; J0360; J2405; J7030; Q9967